=== PATIENT | male | born 1965 | race Caucasian/White ===

== ENCOUNTER 2017-11-12 12:29 | Inpatient (IN) | END 2017-11-20 16:58 | disposition home or self-care (01) | DRG 280 ==

== ENCOUNTER → 2017-11-12 | Outpatient (CLI) | END | disposition home or self-care (01) ==

== ENCOUNTER 2017-12-01 17:31 | Inpatient (IN) | END 2017-12-03 17:15 | disposition home or self-care (01) | DRG 291 ==

== ENCOUNTER 2018-02-03 06:00 | Day surgery (SDC) | END 2018-02-03 10:54 | disposition home or self-care (01) ==